=== PATIENT | female | born 1970 | race Caucasian/White ===

== ENCOUNTER 2017-04-17 11:22 | Outpatient (CLI) | payer BC | END 2017-04-17 11:23 | disposition home or self-care (01) | LOC: NAVSJIPCSP 11:22 | DX: N92.6 Irregular menstruation, unspecified (principal) | CPT/HCPCS: 36415; 85730 ==

== ENCOUNTER 2017-04-27 11:14 | Outpatient (CLI) | payer BC ==
--- NOTE | 2017-04-27 14:54 | RAD ---
RADIOGRAPH CHEST 2 VIEWS: HISTORY: A 46-year-old female for preoperative clearance. FINDINGS: There is no air space density, pulmonary edema, pleural effusion, pneumothorax, or cardiomegaly. IMPRESSION: No acute cardiopulmonary findings. jn [] POS: [facility]
== END 2017-04-27 11:15 | disposition home or self-care (01) ==
LOC: NAV RAD 11:14
DX: D25.9 Leiomyoma of uterus, unspecified (principal); N92.6 Irregular menstruation, unspecified
CPT/HCPCS: 71020